=== PATIENT | male | born 1970 | race African-American/Black ===

== ENCOUNTER → 2017-11-11 | Outpatient (REF) | LOC: WSPT 10:17 | DX: Z02.1 Encounter for pre-employment examination (principal) ==

== ENCOUNTER 2018-02-19 10:22 | Outpatient (RCR) | payer OTHER | END 2018-05-13 | disposition home or self-care (01) | LOC: WSOH | DX: S56.512A Strain of other extensor muscle, fascia and tendon at forearm level, left arm, initial encounter (principal); X50.1XXA Overexertion from prolonged static or awkward postures, initial encounter; Y92.59 Other trade areas as the place of occurrence of the external cause; Y99.0 Civilian activity done for income or pay | CPT/HCPCS: 24091; A6549 ==